=== PATIENT | female | born 1965 | race Hispanic/Latino ===

== ENCOUNTER 2019-10-23 13:09 | Emergency (ER) | payer SELFPAY ==
[2019-10-23] MEDS ORDERED: ONDANSETRON HCL 4 MG/2 ML VIAL ONE (13:41)
[2019-10-23] MEDS ORDERED: KETOROLAC TROMETHAMINE 15MG/ML ONE (13:41)
[2019-10-23] MEDS ORDERED: SODIUM CHLORIDE 0.9% 1000ML 1,000 ML IV ONE (13:41)
[2019-10-23 13:49] LABS: CREATININE 1.1 mg/dL (0.5-1.5); POTASSIUM 4.1 mmol/L (3.5-5.1)
[2019-10-23 13:53] LABS: ALBUMIN 3.6 g/dL (3.5-5.0); BILIRUBIN,DIRECT 0.1 mg/dL (0.0-0.3); BILIRUBIN,TOTAL 0.4 mg/dL (0.2-1.0); TOTAL PROTEIN, SERUM 7.4 g/dL (6.0-8.3)
[2019-10-23 14:05] LABS: BASOPHILS % (AUTO) 0.4 % (0.0-5.0); EOSINOPHILS % (AUTO) 0.4 % (0.0-8.0); HEMATOCRIT 42.5 % (36-48); LYMPHOCYTES % (AUTO) 11.8 % (21.0-51.0); MEAN CORPUSCULAR HEMOGLOBIN 30.4 pg (27.0-33.0); MEAN CORPUSCULAR HGB CONC 33.6 g/dL (32.0-36.0); MEAN CORPUSCULAR VOLUME 90.2 fL (79-99); MONOCYTES % (AUTO) 4.6 % (3.0-13.0); NEUTROPHILS % (AUTO) 82.5 % (40.0-77.0); PLATELET COUNT (AUTO) 319 K/uL (130-400); RED BLOOD CELL COUNT(AUTO) 4.71 MIL/uL (4.00-5.50); RED CELL DISTRIBUTION WIDTH 12.1 % (11.0-15.5); WHITE BLOOD COUNT (AUTO) 16.5 K/uL (4.8-10.8)
[2019-10-23 14:26] LABS: AMPHET/METH SCREEN,URINE NEGATIVE (NEGATIVE); BARBITURATE SCREEN, URINE NEGATIVE (NEGATIVE); BENZODIAZEPINES SCREEN,URINE NEGATIVE (NEGATIVE); CANNABINOID SCREEN,URINE POSITIVE (NEGATIVE); COCAINE SCREEN,URINE POSITIVE (NEGATIVE); OPIATE SCREEN,URINE NEGATIVE (NEGATIVE); PHENCYCLIDINE SCREEN,URINE NEGATIVE (NEGATIVE)
[2019-10-23 14:40] LABS: APPEARANCE,URINE Clear (CLEAR); BILIRUBIN,URINE Negative (NEGATIVE); COLOR,URINE Yellow (YELLOW); GLUCOSE, URINE (UA) Negative (NEGATIVE); KETONES,URINE Negative (NEGATIVE); LEUKOCYTE ESTERASE ,URINE Negative (NEGATIVE); NITRATE,URINE Negative (NEGATIVE); OCCULT BLOOD,URINE Large (NEGATIVE); PH,URINE 7.5 (5.0-8.0); PROTEIN,URINE Negative (NEGATIVE); UROBILINOGEN,URINE 0.2 mg/dL (0.2-1.0)
[2019-10-23 14:52] LABS: BACTERIA,URINE Rare /HPF (None Seen); RBC,URINE 26-50 /HPF (0-1); SQUAMOUS EPITHELIAL CELL,UR Rare /HPF (0-2); WBC,URINE 0-1 /HPF (0-1)
== END 2019-10-23 15:47 | disposition home or self-care (01) ==
LOC: EDH 13:09
DX: N20.0 Calculus of kidney (principal); F14.10 Cocaine abuse, uncomplicated; R11.2 Nausea with vomiting, unspecified; Z72.0 Tobacco use; Z98.890 Other specified postprocedural states
CPT/HCPCS: 36415; 74176; 80048; 80076; 80305; 81001; 82550; 83690; 85025; 93005; 96361; 96374; 96375; 99285; J1885; J2405; J7030

== ENCOUNTER 2019-10-26 11:01 | Emergency (ER) | payer SELFPAY ==
[2019-10-26] MEDS ORDERED: KETOROLAC TROMETHAMINE 15MG/ML ONE (11:45)
[2019-10-26] MEDS ORDERED: ONDANSETRON HCL 4 MG/2 ML VIAL ONE (11:45)
[2019-10-26 12:01] LABS: BASOPHILS % (AUTO) 0.5 % (0.0-5.0); EOSINOPHILS % (AUTO) 2.1 % (0.0-8.0); HEMATOCRIT 38.3 % (36-48); LYMPHOCYTES % (AUTO) 19.7 % (21.0-51.0); MEAN CORPUSCULAR HEMOGLOBIN 29.9 pg (27.0-33.0); MEAN CORPUSCULAR HGB CONC 32.6 g/dL (32.0-36.0); MEAN CORPUSCULAR VOLUME 91.6 fL (79-99); MONOCYTES % (AUTO) 6.5 % (3.0-13.0); NEUTROPHILS % (AUTO) 70.9 % (40.0-77.0); PLATELET COUNT (AUTO) 271 K/uL (130-400); RED BLOOD CELL COUNT(AUTO) 4.18 MIL/uL (4.00-5.50); RED CELL DISTRIBUTION WIDTH 12.1 % (11.0-15.5); WHITE BLOOD COUNT (AUTO) 10.8 K/uL (4.8-10.8)
[2019-10-26 12:02] LABS: APPEARANCE,URINE Clear (CLEAR); BILIRUBIN,URINE Negative (NEGATIVE); COLOR,URINE Yellow (YELLOW); GLUCOSE, URINE (UA) Negative (NEGATIVE); KETONES,URINE Negative (NEGATIVE); LEUKOCYTE ESTERASE ,URINE Negative (NEGATIVE); NITRATE,URINE Negative (NEGATIVE); OCCULT BLOOD,URINE Trace (NEGATIVE); PROTEIN,URINE Negative (NEGATIVE); UROBILINOGEN,URINE 0.2 mg/dL (0.2-1.0)
[2019-10-26 12:06] LABS: CREATININE 0.7 mg/dL (0.5-1.5); POTASSIUM 3.7 mmol/L (3.5-5.1)
[2019-10-26 12:10] LABS: AMPHET/METH SCREEN,URINE NEGATIVE (NEGATIVE); BARBITURATE SCREEN, URINE NEGATIVE (NEGATIVE); BENZODIAZEPINES SCREEN,URINE NEGATIVE (NEGATIVE); CANNABINOID SCREEN,URINE POSITIVE (NEGATIVE); COCAINE SCREEN,URINE POSITIVE (NEGATIVE); OPIATE SCREEN,URINE NEGATIVE (NEGATIVE); PHENCYCLIDINE SCREEN,URINE NEGATIVE (NEGATIVE)
[2019-10-26 12:11] LABS: ALBUMIN 3.7 g/dL (3.5-5.0); BILIRUBIN,TOTAL 0.3 mg/dL (0.2-1.0)
[2019-10-26] MEDS ORDERED: MAG HYDROX/AL HYDROX/SIMETH ES 30 ML SUSP UDCUP ONE (12:20)
[2019-10-26] MEDS ORDERED: LIDOCAINE HCL 2% VISCOUS 15 ML UDCUP ONE (12:20)
[2019-10-26 12:57] LABS: BACTERIA,URINE Rare /HPF (None Seen); RBC,URINE 0-1 /HPF (0-1); SQUAMOUS EPITHELIAL CELL,UR None Seen /HPF (0-2)
== END 2019-10-26 13:06 | disposition home or self-care (01) ==
LOC: EDH 11:01
DX: K29.00 Acute gastritis without bleeding (principal); Z72.0 Tobacco use; Z98.890 Other specified postprocedural states
CPT/HCPCS: 36415; 76705; 80053; 80305; 81001; 83690; 85025; 96374; 96375; 99285; J1885; J2405

== ENCOUNTER 2020-03-02 22:43 | Emergency (ER) | payer OTHER, SELFPAY ==
[2020-03-02 23:05] LABS: BASOPHILS % (AUTO) 0.2 % (0.0-5.0); EOSINOPHILS % (AUTO) 0.1 % (0.0-8.0); HEMATOCRIT 43.1 % (36-48); LYMPHOCYTES % (AUTO) 18.1 % (21.0-51.0); MEAN CORPUSCULAR HEMOGLOBIN 29.4 pg (27.0-33.0); MEAN CORPUSCULAR HGB CONC 33.2 g/dL (32.0-36.0); MEAN CORPUSCULAR VOLUME 88.7 fL (79-99); MONOCYTES % (AUTO) 6.6 % (3.0-13.0); NEUTROPHILS % (AUTO) 74.4 % (40.0-77.0); PLATELET COUNT (AUTO) 304 K/uL (130-400); RED BLOOD CELL COUNT(AUTO) 4.86 MIL/uL (4.00-5.50); RED CELL DISTRIBUTION WIDTH 12.1 % (11.0-15.5); WHITE BLOOD COUNT (AUTO) 13.9 K/uL (4.8-10.8)
[2020-03-02 23:16] LABS: POTASSIUM 3.5 mmol/L (3.5-5.1)
[2020-03-02 23:18] LABS: INR 1.08 (0.85-1.15); PARTIAL THROMBOPLASTIN TIME 28.5 SEC (26.3-35.5); PROTHROMBIN TIME 11.6 SEC (9.6-11.6)
[2020-03-02 23:21] LABS: ALBUMIN 3.8 g/dL (3.5-5.0); BILIRUBIN,TOTAL 0.6 mg/dL (0.2-1.0); TOTAL PROTEIN, SERUM 7.8 g/dL (6.0-8.3)
[2020-03-02] MEDS ORDERED: KETOROLAC TROMETHAMINE 30MG/ML ONE (23:36)
[2020-03-02] MEDS ORDERED: ONDANSETRON HCL 4 MG/2 ML VIAL ONE (23:36)
[2020-03-02] MEDS ORDERED: METOCLOPRAMIDE 10 MG/2 ML VIAL ONE (23:36)
[2020-03-02] MEDS ORDERED: FAMOTIDINE/PF 20 MG/2 ML VIAL IV ONE (23:37)
[2020-03-03 04:23] LABS: APPEARANCE,URINE Clear (CLEAR); BILIRUBIN,URINE Negative (NEGATIVE); COLOR,URINE Yellow (YELLOW); GLUCOSE, URINE (UA) Negative (NEGATIVE); KETONES,URINE Negative (NEGATIVE); LEUKOCYTE ESTERASE ,URINE Trace (NEGATIVE); NITRATE,URINE Negative (NEGATIVE); OCCULT BLOOD,URINE Negative (NEGATIVE); PH,URINE 6.5 (5.0-8.0); PROTEIN,URINE Negative (NEGATIVE)
[2020-03-03 04:25] LABS: BACTERIA,URINE None Seen /HPF (None Seen); RBC,URINE 0-1 /HPF (0-1); SQUAMOUS EPITHELIAL CELL,UR Few /HPF (0-2); WBC,URINE None Seen /HPF (0-1)
[2020-03-03 04:26] LABS: AMPHET/METH SCREEN,URINE NEGATIVE (NEGATIVE); BARBITURATE SCREEN, URINE NEGATIVE (NEGATIVE); BENZODIAZEPINES SCREEN,URINE NEGATIVE (NEGATIVE); CANNABINOID SCREEN,URINE POSITIVE (NEGATIVE); COCAINE SCREEN,URINE POSITIVE (NEGATIVE); OPIATE SCREEN,URINE NEGATIVE (NEGATIVE); PHENCYCLIDINE SCREEN,URINE NEGATIVE (NEGATIVE)
== END 2020-03-03 02:04 | disposition home or self-care (01) ==
LOC: EDH 22:43
DX: K29.70 Gastritis, unspecified, without bleeding (principal); R11.2 Nausea with vomiting, unspecified; Z72.0 Tobacco use; Z98.890 Other specified postprocedural states
CPT/HCPCS: 36415; 76705; 80053; 80305; 81001; 83605; 83690; 84484; 85025; 85610; 85730; 93005; 96361; 96374; 96375; 99285; J1885; J2405; J2765; J3490

== ENCOUNTER 2021-03-06 18:19 | Emergency (ER) | payer OTHER, SELFPAY ==
[~2021-03-06] VITALS: Ht 157.5 cm; Wt 108.9 kg
[2021-03-06 18:49] VITALS: BP 185/81
[2021-03-06] MEDS ORDERED: SODIUM CHLORIDE 0.9% 1000ML 1,000 ML IV SCH (20:30)
[2021-03-06] MEDS ORDERED: FAMOTIDINE/PF 20 MG/2 ML VIAL IV SCH (20:30)
[2021-03-06] MEDS ORDERED: PANTOPRAZOLE 40 MG/VIAL IVP SCH (20:30)
[2021-03-06] MEDS ORDERED: ONDANSETRON HCL 4 MG/2 ML VIAL IVP SCH (20:30)
[2021-03-06] MEDS ORDERED: ONDANSETRON HCL 4 MG/2 ML VIAL ONE (20:40)
[2021-03-06] MEDS ORDERED: PANTOPRAZOLE 40 MG/VIAL ONE (20:40)
[2021-03-06] MEDS ORDERED: FAMOTIDINE/PF 20 MG/2 ML VIAL IV ONE (20:41)
[2021-03-06 20:44] LABS: BASOPHILS % (AUTO) 0.3 % (0.0-5.0); EOSINOPHILS % (AUTO) 0.2 % (0.0-8.0); HEMATOCRIT 46.8 % (36-48); LYMPHOCYTES % (AUTO) 10.6 % (21.0-51.0); MEAN CORPUSCULAR HEMOGLOBIN 30.5 pg (27.0-33.0); MEAN CORPUSCULAR HGB CONC 33.3 g/dL (32.0-36.0); MEAN CORPUSCULAR VOLUME 91.4 fL (79-99); MONOCYTES % (AUTO) 3.2 % (3.0-13.0); NEUTROPHILS % (AUTO) 85.3 % (40.0-77.0); PLATELET COUNT (AUTO) 365 K/uL (130-400); RED BLOOD CELL COUNT(AUTO) 5.12 MIL/uL (4.00-5.50); RED CELL DISTRIBUTION WIDTH 11.9 % (11.0-15.5); WHITE BLOOD COUNT (AUTO) 18.2 K/uL (4.8-10.8)
[2021-03-06 20:47] LABS: APPEARANCE,URINE Clear (CLEAR); BILIRUBIN,URINE Negative (NEGATIVE); COLOR,URINE Yellow (YELLOW); GLUCOSE, URINE (UA) Negative (NEGATIVE); KETONES,URINE 40 mg/dL (NEGATIVE); LEUKOCYTE ESTERASE ,URINE Negative (NEGATIVE); NITRATE,URINE Negative (NEGATIVE); OCCULT BLOOD,URINE Negative (NEGATIVE); PROTEIN,URINE Trace mg/dL (NEGATIVE)
[2021-03-06 20:51] LABS: CARBON DIOXIDE 26 mmol/L (21-32); CHLORIDE 101 mmol/L (101-111); CREATININE 0.8 mg/dL (0.5-1.5); GLOMERULAR FILTR. RATE CALC 79 mL/min (>60); GLUCOSE,RANDOM 145 mg/dL (70-105); POTASSIUM 3.7 mmol/L (3.5-5.1); SODIUM SERUM 139 mmol/L (136-145); UREA NITROGEN, BLOOD 12 mg/dL (7-18)
[2021-03-06 20:55] LABS: BACTERIA,URINE Few /HPF (None Seen); MUCUS,URINE Rare LPF (None Seen); RBC,URINE 0-1 /HPF (0-1); SQUAMOUS EPITHELIAL CELL,UR Few /HPF (0-2); WBC,URINE 0-1 /HPF (0-1)
[2021-03-06 21:01] LABS: ALANINE AMINOTRANSFERASE 34 U/L (12-78); ALBUMIN 4.2 g/dL (3.5-5.0); ASPARTATE AMINOTRANSFERASE 24 U/L (10-37); BILIRUBIN,TOTAL 0.6 mg/dL (0.2-1.0); TOTAL PROTEIN, SERUM 8.7 g/dL (6.0-8.3)
[2021-03-06 21:02] LABS: LIPASE < 50 U/L (114-286)
[2021-03-06 22:44] VITALS: BP 159/60
[2021-03-06] MEDS ORDERED: DICY20TA2 PO (23:21)
[2021-03-06] MEDS ORDERED: ONDA4TAB10 PO (23:21)
[2021-03-06] MEDS ORDERED: PANT40TA PO (23:21)
[2021-03-06] MEDS ORDERED: METO10TA41 PO (23:21)
[2021-03-06 23:27] VITALS: BP 147/71
== END 2021-03-06 23:57 | disposition home or self-care (01) ==
LOC: EDH 18:19
DX: K29.70 Gastritis, unspecified, without bleeding (principal); E86.0 Dehydration; K21.9 Gastro-esophageal reflux disease without esophagitis; Z79.899 Other long term (current) drug therapy; Z87.19 Personal history of other diseases of the digestive system; Z98.890 Other specified postprocedural states
CPT/HCPCS: 36415; 80053; 81001; 83690; 84484; 85025; 93005; 96361; 96374; 96375; 99284; C9113; J2405; J3490; J7030

== ENCOUNTER 2021-08-20 17:17 | Inpatient (IN) | payer OTHER, SELFPAY ==
[~2021-08-20] VITALS: Ht 157.5 cm; Wt 101.7 kg
[~2021-08-20 17:17] MED LIST: DICY20TA2 PO; METO10TA41 PO; ONDA4TAB10 PO; PANT40TA PO
[2021-08-20] MEDS ORDERED: PANTOPRAZOLE 40 MG/VIAL IVP ONE (17:30)
[2021-08-20] MEDS ORDERED: 0.9%NACL 1000ML 1,000 ML IV ONE ×2 (17:30→20:30)
[2021-08-20] MEDS ORDERED: ONDANSETRON 4MG INJ IVP ONE (17:30)
[2021-08-20 17:48] LABS: BASOPHILS % (AUTO) 0.3 % (0.0-5.0); EOSINOPHILS % (AUTO) 0.1 % (0.0-8.0); HEMATOCRIT 49.5 % (36-48); LYMPHOCYTES % (AUTO) 13.2 % (21.0-51.0); MEAN CORPUSCULAR HEMOGLOBIN 30.7 pg (27.0-33.0); MEAN CORPUSCULAR HGB CONC 34.1 g/dL (32.0-36.0); MONOCYTES % (AUTO) 4.7 % (3.0-13.0); NEUTROPHILS % (AUTO) 81.2 % (40.0-77.0); PLATELET COUNT (AUTO) 427 K/uL (130-400); WHITE BLOOD COUNT (AUTO) 18.3 K/uL (4.8-10.8)
[2021-08-20 17:57] LABS: CARBON DIOXIDE 27 mmol/L (21-32); CHLORIDE 96 mmol/L (101-111); GLOMERULAR FILTR. RATE CALC 61 mL/min (>60); GLUCOSE,RANDOM 164 mg/dL (70-105); POTASSIUM 3.4 mmol/L (3.5-5.1); SODIUM SERUM 137 mmol/L (136-145); UREA NITROGEN, BLOOD 10 mg/dL (7-18)
[2021-08-20 17:59] LABS: ALANINE AMINOTRANSFERASE 37 U/L (12-78); ALBUMIN 4.4 g/dL (3.5-5.0); AMYLASE 38 U/L (25-115); ASPARTATE AMINOTRANSFERASE 24 U/L (10-37); BILIRUBIN,TOTAL 0.8 mg/dL (0.2-1.0); TOTAL PROTEIN, SERUM 9.1 g/dL (6.0-8.3)
[2021-08-20 18:01] LABS: LIPASE < 50 U/L (114-286)
[2021-08-20 18:17] LABS: INR 1.15 (0.85-1.15); PROTHROMBIN TIME 12.4 SEC (9.6-11.6)
[2021-08-20 18:18] LABS: PARTIAL THROMBOPLASTIN TIME 28.7 SEC (26.3-35.5)
[2021-08-20] MEDS ORDERED: IOHEXOL 350 MG/ML 100ML INFUS..BTL IV ONE (19:10)
[2021-08-20 20:10] LABS: APPEARANCE,URINE Clear (CLEAR); BILIRUBIN,URINE Negative (NEGATIVE); COLOR,URINE Yellow (YELLOW); GLUCOSE, URINE (UA) Negative (NEGATIVE); KETONES,URINE Trace mg/dL (NEGATIVE); LEUKOCYTE ESTERASE ,URINE Negative (NEGATIVE); NITRATE,URINE Negative (NEGATIVE); OCCULT BLOOD,URINE Negative (NEGATIVE); PH,URINE 5.5 (5.0-8.0); PROTEIN,URINE POS 1+ mg/dL (NEGATIVE)
[2021-08-20 20:17] LABS: BACTERIA,URINE Few /HPF (None Seen); RBC,URINE 0-1 /HPF (0-1); SQUAMOUS EPITHELIAL CELL,UR Moderate /HPF (0-2); WBC,URINE 0-1 /HPF (0-1)
[2021-08-20 20:18] LABS: AMPHET/METH SCREEN,URINE NEGATIVE (NEGATIVE); BARBITURATE SCREEN, URINE NEGATIVE (NEGATIVE); BENZODIAZEPINES SCREEN,URINE NEGATIVE (NEGATIVE); CANNABINOID SCREEN,URINE POSITIVE (NEGATIVE); COCAINE SCREEN,URINE POSITIVE (NEGATIVE); OPIATE SCREEN,URINE NEGATIVE (NEGATIVE); PHENCYCLIDINE SCREEN,URINE NEGATIVE (NEGATIVE)
[2021-08-20] MEDS ORDERED: ZOSYN 3.375GM +NS 50ML IV SCH (20:30)
[2021-08-20] MEDS ORDERED: MORPHINE 4 MG SYG IM ONE (20:30)
[2021-08-20] MEDS ORDERED: MORPHINE 4 MG SYG ONE (20:53)
[2021-08-20] MEDS: LACTATED RINGERS 1000ML 1,000 ML IV SCH (21:30)
[2021-08-20] MEDS ORDERED: MORPHINE 4 MG SYG IV ONE (22:00)
[2021-08-21] MEDS: THIAMINE HCL 100 MG, FOLIC ACID 1 MG, M.V.I. IV [ADULT] 10 ML in 0.9%NACL 1000ML 1,000 ML IV SCH ×2 (03:30→07:50)
[2021-08-21] MEDS ORDERED: PHARMACY COMMUNICATION MISC PRN (03:30)
[2021-08-21] MEDS ORDERED: LORAZEPAM 2 MG/ML 1 ML VIAL IVP PRN (03:30)
[2021-08-21] MEDS ORDERED: CHLORDIAZEPOXIDE HCL 25 MG CAP PO PRN (03:30)
[2021-08-21] MEDS ORDERED: ZOSYN 3.375GM +NS 50ML IV SCH (05:30)
[2021-08-21] MEDS: ZOSYN 3.375GM +NS 50ML IV SCH ×3 (05:34→20:35)
[2021-08-21] MEDS: HYDRALAZINE 20MG/ML VIAL IV PRN ×2 (06:26→10:18)
[2021-08-21 06:40] LABS: BASOPHILS % (AUTO) 0.4 % (0.0-5.0); EOSINOPHILS % (AUTO) 0.7 % (0.0-8.0); HEMATOCRIT 43.6 % (36-48); LYMPHOCYTES % (AUTO) 20.6 % (21.0-51.0); MEAN CORPUSCULAR HEMOGLOBIN 31.1 pg (27.0-33.0); MEAN CORPUSCULAR HGB CONC 33.3 g/dL (32.0-36.0); MEAN CORPUSCULAR VOLUME 93.6 fL (79-99); MONOCYTES % (AUTO) 7.4 % (3.0-13.0); NEUTROPHILS % (AUTO) 70.5 % (40.0-77.0); PLATELET COUNT (AUTO) 318 K/uL (130-400); RED BLOOD CELL COUNT(AUTO) 4.66 MIL/uL (4.00-5.50); RED CELL DISTRIBUTION WIDTH 12.2 % (11.0-15.5); WHITE BLOOD COUNT (AUTO) 13.6 K/uL (4.8-10.8)
[2021-08-21] MEDS: LACTATED RINGERS 1000ML 1,000 ML IV SCH ×2 (06:46→17:51)
[2021-08-21 07:09] LABS: PHOSPHORUS 4.3 mg/dL (2.5-4.9)
[2021-08-21 07:19] LABS: ALCOHOL, BLOOD < 3 mg/dL (0-10)
[2021-08-21 07:20] LABS: CREATININE 0.9 mg/dL (0.5-1.5); POTASSIUM 3.3 mmol/L (3.5-5.1)
[2021-08-21 07:24] LABS: ALBUMIN 3.5 g/dL (3.5-5.0); BILIRUBIN,TOTAL 0.8 mg/dL (0.2-1.0); TOTAL PROTEIN, SERUM 7.1 g/dL (6.0-8.3)
[2021-08-21] MEDS ORDERED: KETOROLAC 30MG VIAL (30MG/ML) ONE (10:10)
[2021-08-21] MEDS: PANTOPRAZOLE 40 MG/VIAL IVP SCH ×2 (10:17→20:33)
[2021-08-21] MEDS: ENOXAPARIN SODIUM 40 MG/0.4 ML SYRINGE SQ SCH ×2 (10:18→10:27)
[2021-08-21] MEDS ORDERED: HYDRALAZINE 20MG/ML VIAL IV PRN (10:30)
[2021-08-21 11:37] VITALS: BP 170/92
[2021-08-21 16:48] VITALS: BP 156/89
[2021-08-21 20:25] VITALS: BP 187/92
[2021-08-21] MEDS: KETOROLAC 15MG/ML VIAL (15MG/ML) IV PRN (20:38)
[2021-08-21] MEDS ORDERED: IOHEXOL-350 75 ML VIAL IV ONE (20:46)
[2021-08-21] MEDS ORDERED: DIATR MEGLU/DIATRIZOATE SODIUM 30 ML BOTTLE ONE (21:28)
[2021-08-21] MEDS: ONDANSETRON 4MG INJ IV PRN (23:32)
[2021-08-22] VITALS (8 sets, daily range): BP systolic 142–191; BP diastolic 62–105
[2021-08-22] MEDS: KETOROLAC 15MG/ML VIAL (15MG/ML) IV PRN ×3 (01:49→23:00)
[2021-08-22] MEDS: LACTATED RINGERS 1000ML 1,000 ML IV SCH ×3 (03:00→22:01)
[2021-08-22] MEDS: ZOSYN 3.375GM +NS 50ML IV SCH ×3 (05:19→20:13)
[2021-08-22 08:17] LABS: BASOPHILS % (AUTO) 0.3 % (0.0-5.0); EOSINOPHILS % (AUTO) 0.6 % (0.0-8.0); LYMPHOCYTES % (AUTO) 18.3 % (21.0-51.0); MEAN CORPUSCULAR HEMOGLOBIN 30.8 pg (27.0-33.0); MEAN CORPUSCULAR HGB CONC 33.6 g/dL (32.0-36.0); MEAN CORPUSCULAR VOLUME 91.7 fL (79-99); NEUTROPHILS % (AUTO) 73.5 % (40.0-77.0); PLATELET COUNT (AUTO) 309 K/uL (130-400); RED BLOOD CELL COUNT(AUTO) 4.58 MIL/uL (4.00-5.50); RED CELL DISTRIBUTION WIDTH 12.1 % (11.0-15.5); WHITE BLOOD COUNT (AUTO) 14.5 K/uL (4.8-10.8)
[2021-08-22] MEDS ORDERED: MORPHINE 2 MG SYG IVP SCH (08:30)
[2021-08-22 08:36] LABS: CREATININE 0.8 mg/dL (0.5-1.5); POTASSIUM 3.2 mmol/L (3.5-5.1)
[2021-08-22] MEDS: PANTOPRAZOLE 40 MG/VIAL IVP SCH ×2 (09:55→20:13)
[2021-08-22] MEDS ORDERED: LIDOCAINE HCL-MPF 1% 2ML VIAL IV SCH (15:30)
[2021-08-22] MEDS: POTASSIUM CHLORIDE 20MEQ/100ML 100 ML IV PRN ×2 (15:50→20:13)
[2021-08-22] MEDS: HYDRALAZINE 20MG/ML VIAL IV PRN ×2 (16:40)
[2021-08-23] MEDS: THIAMINE HCL 100 MG, FOLIC ACID 1 MG, M.V.I. IV [ADULT] 10 ML in 0.9%NACL 1000ML 1,000 ML IV SCH (03:24)
[2021-08-23] MEDS: ZOSYN 3.375GM +NS 50ML IV SCH ×3 (03:25→20:08)
[2021-08-23 04:00] VITALS: BP 150/80
[2021-08-23 05:33] LABS: BASOPHILS % (AUTO) 0.6 % (0.0-5.0); EOSINOPHILS % (AUTO) 1.6 % (0.0-8.0); HEMATOCRIT 41.4 % (36-48); LYMPHOCYTES % (AUTO) 20.4 % (21.0-51.0); MEAN CORPUSCULAR HEMOGLOBIN 30.8 pg (27.0-33.0); MEAN CORPUSCULAR HGB CONC 32.6 g/dL (32.0-36.0); MEAN CORPUSCULAR VOLUME 94.5 fL (79-99); MONOCYTES % (AUTO) 7.6 % (3.0-13.0); NEUTROPHILS % (AUTO) 69.5 % (40.0-77.0); PLATELET COUNT (AUTO) 274 K/uL (130-400); RED BLOOD CELL COUNT(AUTO) 4.38 MIL/uL (4.00-5.50); RED CELL DISTRIBUTION WIDTH 12.1 % (11.0-15.5); WHITE BLOOD COUNT (AUTO) 12.2 K/uL (4.8-10.8)
[2021-08-23 05:41] LABS: CREATININE 0.8 mg/dL (0.5-1.5); POTASSIUM 3.2 mmol/L (3.5-5.1)
[2021-08-23] MEDS: LIDOCAINE HCL-MPF 1% 2ML VIAL IV PRN ×2 (05:54→14:28)
[2021-08-23] MEDS: POTASSIUM CHLORIDE 20MEQ/100ML 100 ML IV PRN ×2 (05:54→14:28)
[2021-08-23 07:53] VITALS: BP 148/78
[2021-08-23] MEDS: PANTOPRAZOLE 40 MG/VIAL IVP SCH ×2 (09:03→20:08)
[2021-08-23] MEDS: ENOXAPARIN SODIUM 40 MG/0.4 ML SYRINGE SQ SCH (09:03)
[2021-08-23] MEDS: LACTATED RINGERS 1000ML 1,000 ML IV SCH ×2 (09:05→16:12)
[2021-08-23 12:00] VITALS: BP 172/82
[2021-08-23 16:00] VITALS: BP 162/71
[2021-08-23] MEDS: HYDRALAZINE 20MG/ML VIAL IV PRN (16:11)
[2021-08-23] MEDS: KETOROLAC 15MG/ML VIAL (15MG/ML) IV PRN (16:17)
[2021-08-23 19:54] VITALS: BP 156/70
[2021-08-23 23:08] VITALS: BP 160/69
[2021-08-24 03:45] VITALS: BP 164/89
[2021-08-24] MEDS: ZOSYN 3.375GM +NS 50ML IV SCH ×3 (04:42→20:53)
[2021-08-24] MEDS: KETOROLAC 15MG/ML VIAL (15MG/ML) IV PRN (04:42)
[2021-08-24] MEDS: ONDANSETRON 4MG INJ IV PRN (04:42)
[2021-08-24] MEDS: LACTATED RINGERS 1000ML 1,000 ML IV SCH ×2 (04:43→15:33)
[2021-08-24 05:11] LABS: BASOPHILS % (AUTO) 0.5 % (0.0-5.0); EOSINOPHILS % (AUTO) 1.7 % (0.0-8.0); HEMATOCRIT 40.8 % (36-48); MEAN CORPUSCULAR HGB CONC 33.3 g/dL (32.0-36.0); MEAN CORPUSCULAR VOLUME 92.9 fL (79-99); MONOCYTES % (AUTO) 6.7 % (3.0-13.0); NEUTROPHILS % (AUTO) 65.7 % (40.0-77.0); PLATELET COUNT (AUTO) 309 K/uL (130-400); RED BLOOD CELL COUNT(AUTO) 4.39 MIL/uL (4.00-5.50); RED CELL DISTRIBUTION WIDTH 11.8 % (11.0-15.5); WHITE BLOOD COUNT (AUTO) 12.1 K/uL (4.8-10.8)
[2021-08-24 05:24] LABS: ALBUMIN 3.2 g/dL (3.5-5.0); BILIRUBIN,TOTAL 0.7 mg/dL (0.2-1.0); CREATININE 0.7 mg/dL (0.5-1.5); MAGNESIUM 2.1 mg/dL (1.80-2.40); PHOSPHORUS 4.2 mg/dL (2.5-4.9); POTASSIUM 3.4 mmol/L (3.5-5.1); TOTAL PROTEIN, SERUM 6.6 g/dL (6.0-8.3)
[2021-08-24] MEDS: POTASSIUM CHLORIDE 20MEQ/100ML 100 ML IV PRN (06:56)
[2021-08-24] MEDS: LIDOCAINE HCL-MPF 1% 2ML VIAL IV PRN (06:56)
[2021-08-24 08:00] VITALS: BP 165/72
[2021-08-24] MEDS: PANTOPRAZOLE 40 MG/VIAL IVP SCH ×2 (10:07→20:30)
[2021-08-24] MEDS: ENOXAPARIN SODIUM 40 MG/0.4 ML SYRINGE SQ SCH (10:08)
[2021-08-24 12:00] VITALS: BP 149/64
[2021-08-24 16:00] VITALS: BP 180/71
[2021-08-24 20:00] VITALS: BP 166/77
[2021-08-25 00:03] VITALS: BP 183/90
[2021-08-25] MEDS: ONDANSETRON 4MG INJ IV PRN (00:03)
[2021-08-25] MEDS: HYDRALAZINE 20MG/ML VIAL IV PRN ×2 (00:04→21:23)
[2021-08-25] MEDS: KETOROLAC 15MG/ML VIAL (15MG/ML) IV PRN ×3 (00:04→21:23)
[2021-08-25] MEDS: LACTATED RINGERS 1000ML 1,000 ML IV SCH ×3 (00:51→21:23)
[2021-08-25 05:05] VITALS: BP 168/76
[2021-08-25] MEDS: ZOSYN 3.375GM +NS 50ML IV SCH ×3 (05:49→21:23)
[2021-08-25 08:53] VITALS: BP 174/83
[2021-08-25] MEDS: ENOXAPARIN SODIUM 40 MG/0.4 ML SYRINGE SQ SCH (09:00)
[2021-08-25] MEDS: PANTOPRAZOLE 40 MG/VIAL IVP SCH ×2 (09:03→20:31)
[2021-08-25 09:35] LABS: INR 1.16 (0.85-1.15); PROTHROMBIN TIME 12.5 SEC (9.6-11.6)
[2021-08-25 09:36] LABS: PARTIAL THROMBOPLASTIN TIME 28.3 SEC (26.3-35.5)
[2021-08-25 11:48] VITALS: BP 187/81
[2021-08-25 17:18] VITALS: BP 185/73
[2021-08-25 19:52] VITALS: BP 187/86
[2021-08-26] VITALS (7 sets, daily range): BP systolic 128–181; BP diastolic 53–90
[2021-08-26] MEDS: ZOSYN 3.375GM +NS 50ML IV SCH ×3 (05:47→20:41)
[2021-08-26 06:22] LABS: BASOPHILS % (AUTO) 0.4 % (0.0-5.0); EOSINOPHILS % (AUTO) 2.5 % (0.0-8.0); HEMATOCRIT 40.3 % (36-48); LYMPHOCYTES % (AUTO) 26.3 % (21.0-51.0); MEAN CORPUSCULAR HEMOGLOBIN 30.7 pg (27.0-33.0); MEAN CORPUSCULAR VOLUME 93.1 fL (79-99); MONOCYTES % (AUTO) 7.3 % (3.0-13.0); NEUTROPHILS % (AUTO) 63.2 % (40.0-77.0); PLATELET COUNT (AUTO) 326 K/uL (130-400); RED BLOOD CELL COUNT(AUTO) 4.33 MIL/uL (4.00-5.50); RED CELL DISTRIBUTION WIDTH 11.9 % (11.0-15.5); WHITE BLOOD COUNT (AUTO) 11.2 K/uL (4.8-10.8)
[2021-08-26 06:38] LABS: CREATININE 0.6 mg/dL (0.5-1.5); POTASSIUM 3.2 mmol/L (3.5-5.1)
[2021-08-26] MEDS: LACTATED RINGERS 1000ML 1,000 ML IV SCH ×2 (07:00→17:00)
[2021-08-26] MEDS: HYDRALAZINE 20MG/ML VIAL IV PRN ×2 (07:24→20:25)
[2021-08-26] MEDS: ENOXAPARIN SODIUM 40 MG/0.4 ML SYRINGE SQ SCH (09:28)
[2021-08-26] MEDS: PANTOPRAZOLE 40 MG/VIAL IVP SCH ×2 (09:28→20:25)
[2021-08-26] MEDS: MORPHINE 2 MG SYG IVP PRN (12:05)
[2021-08-26] MEDS ORDERED: M.V.I. IV [ADULT] 10 ML in CLINIMIX-E 5%AA /D15%W 2000ML 2,000 ML IV SCH (13:00)
[2021-08-26] MEDS: FAT EMULSIONS 20% 250ML 250 ML IV SCH (13:00)
[2021-08-26] MEDS: POTASSIUM CHLORIDE 20MEQ/100ML 100 ML IV PRN ×2 (20:30→23:02)
[2021-08-27] VITALS (7 sets, daily range): BP systolic 132–175; BP diastolic 67–88
[2021-08-27] MEDS: HYDRALAZINE 20MG/ML VIAL IV PRN ×2 (03:37→20:30)
[2021-08-27] MEDS: ZOSYN 3.375GM +NS 50ML IV SCH ×3 (04:29→20:27)
[2021-08-27 05:19] LABS: ALBUMIN 3.2 g/dL (3.5-5.0); BILIRUBIN,TOTAL 0.4 mg/dL (0.2-1.0); CREATININE 0.6 mg/dL (0.5-1.5); MAGNESIUM 1.8 mg/dL (1.80-2.40); PHOSPHORUS 3.8 mg/dL (2.5-4.9); POTASSIUM 3.1 mmol/L (3.5-5.1); TOTAL PROTEIN, SERUM 6.6 g/dL (6.0-8.3)
[2021-08-27] MEDS: POTASSIUM CHLORIDE 20MEQ/100ML 100 ML IV PRN ×3 (05:32→21:23)
[2021-08-27] MEDS: PANTOPRAZOLE 40 MG/VIAL IVP SCH ×2 (09:09→20:26)
[2021-08-27] MEDS: ENOXAPARIN SODIUM 40 MG/0.4 ML SYRINGE SQ SCH (09:09)
[2021-08-27] MEDS ORDERED: DIATR MEGLU/DIATRIZOATE SODIUM 30 ML BOTTLE ONE (10:55)
[2021-08-27] MEDS ORDERED: IOHEXOL-350 75 ML VIAL IV ONE (14:17)
[2021-08-27] MEDS ORDERED: MAGNESIUM 2GM PREMIX 50ML 50 ML IV PRN (16:00)
[2021-08-27] MEDS ORDERED: CLINIMIX-E 5%AA /D15%W 2000ML 2,000 ML IV SCH (16:30)
[2021-08-27] MEDS: MORPHINE 2 MG SYG IVP PRN (18:42)
[2021-08-28 03:09] VITALS: BP 141/71
[2021-08-28] MEDS: ZOSYN 3.375GM +NS 50ML IV SCH ×3 (03:51→20:34)
[2021-08-28] MEDS: MORPHINE 2 MG SYG IVP PRN ×2 (04:00→12:09)
[2021-08-28 04:27] LABS: MAGNESIUM 2.4 mg/dL (1.80-2.40); POTASSIUM 3.6 mmol/L (3.5-5.1)
[2021-08-28] MEDS: POTASSIUM CHLORIDE 20MEQ/100ML 100 ML IV PRN (04:35)
[2021-08-28 07:05] VITALS: BP 123/59
[2021-08-28 08:19] LABS: BASOPHILS % (AUTO) 0.4 % (0.0-5.0); EOSINOPHILS % (AUTO) 3.1 % (0.0-8.0); HEMATOCRIT 37.9 % (36-48); LYMPHOCYTES % (AUTO) 24.6 % (21.0-51.0); MEAN CORPUSCULAR HEMOGLOBIN 30.6 pg (27.0-33.0); MEAN CORPUSCULAR VOLUME 92.9 fL (79-99); MONOCYTES % (AUTO) 9.6 % (3.0-13.0); NEUTROPHILS % (AUTO) 62.1 % (40.0-77.0); PLATELET COUNT (AUTO) 309 K/uL (130-400); RED BLOOD CELL COUNT(AUTO) 4.08 MIL/uL (4.00-5.50); RED CELL DISTRIBUTION WIDTH 11.9 % (11.0-15.5); WHITE BLOOD COUNT (AUTO) 8.9 K/uL (4.8-10.8)
[2021-08-28 08:27] LABS: CREATININE 0.7 mg/dL (0.5-1.5); MAGNESIUM 2.3 mg/dL (1.80-2.40)
[2021-08-28] MEDS: ENOXAPARIN SODIUM 40 MG/0.4 ML SYRINGE SQ SCH (09:58)
[2021-08-28] MEDS: PANTOPRAZOLE 40 MG/VIAL IVP SCH ×2 (09:59→20:34)
[2021-08-28 11:06] VITALS: BP 139/80
[2021-08-28] MEDS ORDERED: CLINIMIX-E 5%AA /D15%W 2000ML 2,000 ML IV SCH (13:00)
[2021-08-28 15:05] VITALS: BP 144/81
[2021-08-28 19:53] VITALS: BP 154/85
[2021-08-28 23:26] VITALS: BP 145/67
[2021-08-29] VITALS (14 sets, daily range): BP systolic 126–159; BP diastolic 65–85
[2021-08-29] MEDS: PANTOPRAZOLE 40 MG/VIAL IVP SCH ×2 (00:06→07:47)
[2021-08-29] MEDS: ZOSYN 3.375GM +NS 50ML IV SCH ×4 (04:40→21:30)
[2021-08-29 06:59] LABS: BASOPHILS % (AUTO) 0.4 % (0.0-5.0); EOSINOPHILS % (AUTO) 1.9 % (0.0-8.0); HEMATOCRIT 39.7 % (36-48); LYMPHOCYTES % (AUTO) 17.3 % (21.0-51.0); MEAN CORPUSCULAR HEMOGLOBIN 30.7 pg (27.0-33.0); MEAN CORPUSCULAR HGB CONC 32.5 g/dL (32.0-36.0); MEAN CORPUSCULAR VOLUME 94.5 fL (79-99); MONOCYTES % (AUTO) 8.6 % (3.0-13.0); NEUTROPHILS % (AUTO) 71.3 % (40.0-77.0); PLATELET COUNT (AUTO) 336 K/uL (130-400); RED CELL DISTRIBUTION WIDTH 11.9 % (11.0-15.5)
[2021-08-29 07:17] LABS: CREATININE 0.6 mg/dL (0.5-1.5); POTASSIUM 3.9 mmol/L (3.5-5.1)
[2021-08-29] MEDS: MORPHINE 2 MG SYG IVP SCH (07:48)
[2021-08-29] MEDS: ENOXAPARIN SODIUM 40 MG/0.4 ML SYRINGE SQ SCH (07:48)
[2021-08-29] MEDS: FAT EMULSIONS 20% 250ML 250 ML IV SCH (10:16)
[2021-08-29] MEDS ORDERED: CLINIMIX-E 5%AA /D15%W 2000ML 2,000 ML IV SCH (14:30)
[2021-08-29] MEDS ORDERED: FENTANYL CITRATE PF 50 MCG/1 ML 2ML VIAL ONE (19:20)
[2021-08-29] MEDS ORDERED: SUCCINYLCHOLINE CHLORIDE 20 MG/ML 10 ML VIAL ONE (19:20)
[2021-08-29] MEDS ORDERED: PROPOFOL 10 MG/ML 20ML VIAL IV ONE ×2 (19:20→21:31)
[2021-08-29] MEDS ORDERED: MIDAZOLAM HCL 1 MG/ML 2ML VIAL ONE (19:20)
[2021-08-29] MEDS ORDERED: ROCURONIUM 10MG/1ML SYR 10 MG/ML ML ONE ×2 (19:20→19:21)
[2021-08-29] MEDS ORDERED: LIDOCAINE PF 100MG/5ML (2%) SYRINGE 5ML ONE (19:20)
[2021-08-29] MEDS ORDERED: PHENYLEPHRINE HCL 10 MG/ML 1ML VIAL IV ONE (21:08)
[2021-08-29] MEDS ORDERED: NEOSTIGMINE 5MG/5ML SYR IV ONE (22:50)
[2021-08-29] MEDS ORDERED: GLYCOPYRROLATE 1 MG/5 ML SYRINGE ONE (22:50)
[2021-08-29] MEDS ORDERED: MEPERIDINE-PF 25 MG/ML SYG ONE ×2 (23:15→23:29)
[2021-08-29] MEDS ORDERED: METOCLOPRAMIDE 10 MG/2 ML VIAL ONE (23:42)
[2021-08-30] VITALS (14 sets, daily range): BP systolic 100–142; BP diastolic 56–76
[2021-08-30] MEDS: MORPHINE 2 MG SYG IVP PRN ×2 (00:27→06:38)
[2021-08-30] MEDS ORDERED: KETOROLAC 30MG VIAL (30MG/ML) ONE (03:22)
[2021-08-30] MEDS ORDERED: KETOROLAC 30MG VIAL (30MG/ML) IV ONE (03:30)
[2021-08-30] MEDS: ZOSYN 3.375GM +NS 50ML IV SCH ×3 (04:56→19:57)
[2021-08-30] MEDS: MORPHINE 2 MG SYG IVP SCH (06:06)
[2021-08-30] MEDS ORDERED: MORPHINE PCA 50MG/50ML NS IV SCH (07:00)
[2021-08-30 08:20] LABS: HEMATOCRIT 35.5 % (36-48); MEAN CORPUSCULAR HEMOGLOBIN 30.9 pg (27.0-33.0); MEAN CORPUSCULAR HGB CONC 32.7 g/dL (32.0-36.0); MEAN CORPUSCULAR VOLUME 94.4 fL (79-99); RED BLOOD CELL COUNT(AUTO) 3.76 MIL/uL (4.00-5.50); RED CELL DISTRIBUTION WIDTH 11.9 % (11.0-15.5); WHITE BLOOD COUNT (AUTO) 13.2 K/uL (4.8-10.8)
[2021-08-30 08:29] LABS: CREATININE 0.8 mg/dL (0.5-1.5)
[2021-08-30] MEDS: ENOXAPARIN SODIUM 40 MG/0.4 ML SYRINGE SQ SCH (08:51)
[2021-08-30] MEDS: PANTOPRAZOLE 40 MG/VIAL IVP SCH ×2 (08:51→19:56)
[2021-08-30] MEDS ORDERED: KETOROLAC 15MG/ML VIAL (15MG/ML) IM PRN (13:30)
[2021-08-30] MEDS: KETOROLAC 15MG/ML VIAL (15MG/ML) IV PRN ×2 (13:49→19:56)
[2021-08-31] VITALS (7 sets, daily range): BP systolic 111–137; BP diastolic 59–77
[2021-08-31] MEDS ORDERED: DEXTROSE 5%-WATER 1,000 ML IV ONE (02:19)
[2021-08-31] MEDS: KETOROLAC 15MG/ML VIAL (15MG/ML) IV PRN ×2 (02:21→20:41)
[2021-08-31] MEDS: ZOSYN 3.375GM +NS 50ML IV SCH ×3 (04:47→20:41)
[2021-08-31 05:03] LABS: HEMATOCRIT 32.9 % (36-48); MEAN CORPUSCULAR HEMOGLOBIN 30.7 pg (27.0-33.0); MEAN CORPUSCULAR HGB CONC 32.2 g/dL (32.0-36.0); MEAN CORPUSCULAR VOLUME 95.4 fL (79-99); RED BLOOD CELL COUNT(AUTO) 3.45 MIL/uL (4.00-5.50); RED CELL DISTRIBUTION WIDTH 11.8 % (11.0-15.5); WHITE BLOOD COUNT (AUTO) 11.4 K/uL (4.8-10.8)
[2021-08-31 05:19] LABS: CREATININE 0.7 mg/dL (0.5-1.5); POTASSIUM 3.3 mmol/L (3.5-5.1)
[2021-08-31] MEDS: POTASSIUM CHLORIDE 20MEQ/100ML 100 ML IV PRN (07:32)
[2021-08-31] MEDS ORDERED: COMPOUND IV MISC 1 EACH IVSOLN MISC PRN (08:30)
[2021-08-31] MEDS ORDERED: [UNRECOGNIZED DRUG - NUTRITION] IV NR (09:00)
[2021-08-31] MEDS ORDERED: COMPOUND IV REFRIGERATED 1 EACH MISC ONE (09:04)
[2021-08-31] MEDS: PANTOPRAZOLE 40 MG/VIAL IVP SCH ×2 (09:06→20:41)
[2021-08-31] MEDS: ENOXAPARIN SODIUM 40 MG/0.4 ML SYRINGE SQ SCH (09:07)
[2021-08-31] MEDS: FAT EMULSIONS 20% 250ML 250 ML IV SCH (09:08)
[2021-09-01 03:42] VITALS: BP 117/61
[2021-09-01] MEDS: ZOSYN 3.375GM +NS 50ML IV SCH ×3 (06:37→20:40)
[2021-09-01 06:43] LABS: MEAN CORPUSCULAR HEMOGLOBIN 30.2 pg (27.0-33.0); MEAN CORPUSCULAR HGB CONC 31.6 g/dL (32.0-36.0); MEAN CORPUSCULAR VOLUME 95.4 fL (79-99); RED BLOOD CELL COUNT(AUTO) 3.25 MIL/uL (4.00-5.50); RED CELL DISTRIBUTION WIDTH 11.7 % (11.0-15.5); WHITE BLOOD COUNT (AUTO) 8.5 K/uL (4.8-10.8)
[2021-09-01 06:52] LABS: CREATININE 0.7 mg/dL (0.5-1.5); POTASSIUM 3.4 mmol/L (3.5-5.1)
[2021-09-01 07:05] VITALS: BP 145/81
[2021-09-01] MEDS: PANTOPRAZOLE 40 MG/VIAL IVP SCH ×2 (10:19→20:39)
[2021-09-01] MEDS: ENOXAPARIN SODIUM 40 MG/0.4 ML SYRINGE SQ SCH (10:22)
[2021-09-01 11:05] VITALS: BP 134/80
[2021-09-01] MEDS ORDERED: COMPOUND IV REFRIGERATED 1 EACH IVSOLN MISC PRN (12:00)
[2021-09-01] MEDS: POTASSIUM CHLORIDE 20MEQ/100ML 100 ML IV PRN (12:07)
[2021-09-01] MEDS: KETOROLAC 15MG/ML VIAL (15MG/ML) IV PRN ×2 (13:56→20:40)
[2021-09-01 15:00] VITALS: BP 123/68
[2021-09-01 19:55] VITALS: BP 125/74
[2021-09-01 23:30] VITALS: BP 119/64
[2021-09-02 04:24] VITALS: BP 120/58
[2021-09-02] MEDS: ZOSYN 3.375GM +NS 50ML IV SCH ×2 (06:03→14:14)
[2021-09-02 06:20] LABS: HEMATOCRIT 29.4 % (36-48); MEAN CORPUSCULAR HEMOGLOBIN 30.5 pg (27.0-33.0); MEAN CORPUSCULAR HGB CONC 31.6 g/dL (32.0-36.0); MEAN CORPUSCULAR VOLUME 96.4 fL (79-99); RED BLOOD CELL COUNT(AUTO) 3.05 MIL/uL (4.00-5.50); RED CELL DISTRIBUTION WIDTH 11.8 % (11.0-15.5); WHITE BLOOD COUNT (AUTO) 8.4 K/uL (4.8-10.8)
[2021-09-02 06:24] LABS: CREATININE 0.6 mg/dL (0.5-1.5); POTASSIUM 3.2 mmol/L (3.5-5.1)
[2021-09-02 08:00] VITALS: BP 120/68
[2021-09-02] MEDS ORDERED: M.V.I. IV [ADULT] 10 ML in CLINIMIX-E 5%AA /D15%W 2000ML 2,000 ML IV NR (09:00)
[2021-09-02] MEDS ORDERED: KCL 20 MEQ ERTAB PO SCH (09:30)
[2021-09-02] MEDS ORDERED: IBUP-2070 PO (09:40)
[2021-09-02] MEDS: PANTOPRAZOLE 40 MG/VIAL IVP SCH (09:44)
[2021-09-02] MEDS: ENOXAPARIN SODIUM 40 MG/0.4 ML SYRINGE SQ SCH (09:44)
[2021-09-02 11:36] VITALS: BP 136/75
[2021-09-02 16:00] VITALS: BP 130/71
== END 2021-09-02 17:30 | disposition home or self-care (01) | DRG 854 ==
LOC: EDH 17:17 → EDHIP 17:18 → 3AH 08-21 07:59
PROVIDERS: ADMIT Hospitalist; ATTEND Hospitalist
PROC: 0D9670Z Drainage of Stomach with Drainage Device, Via Natural or Artificial Opening (ICD-10-PCS; 2021-08-26)
PROC: 0DJD0ZZ Inspection of Lower Intestinal Tract, Open Approach (ICD-10-PCS; principal; 2021-08-29 17:00)
PROC: 0DB80ZZ Excision of Small Intestine, Open Approach (ICD-10-PCS; 2021-08-29 17:00)
PROC: 0WQF0ZZ Repair Abdominal Wall, Open Approach (ICD-10-PCS; 2021-08-29 17:00)
DX: A41.9 Sepsis, unspecified organism (principal); K43.6 Other and unspecified ventral hernia with obstruction, without gangrene; F19.20 Other psychoactive substance dependence, uncomplicated; K42.0 Umbilical hernia with obstruction, without gangrene; K57.20 Diverticulitis of large intestine with perforation and abscess without bleeding; Z68.41 Body mass index [BMI] 40.0-44.9, adult; F17.200 Nicotine dependence, unspecified, uncomplicated; F12.10 Cannabis abuse, uncomplicated; F14.10 Cocaine abuse, uncomplicated; E86.1 Hypovolemia; I10 Essential (primary) hypertension; Z20.822 Contact with and (suspected) exposure to COVID-19; E66.9 Obesity, unspecified; Z71.41 Alcohol abuse counseling and surveillance of alcoholic
CPT/HCPCS: 36415; 74018; 74176; 74177; 74178; 80048; 80053; 80061; 80305; 81001; 82150; 82550; 83605; 83690; 83735; 84100; 84132; 84145; 84484; 85025; 85027; 85610; 85730; 87040; 87088; 87635; 93005; 97039; A4344; A4606; C1894; C9113; C9803; G0378; J0330; J0360; J1650; J1885; J2001; J2060; J2175; J2250; J2270; J2370; J2405; J2543; J2704; J2710; J2765; J3010; J3411; J3475; J3480; J3490; J7030; J7070; J7120; Q9963; Q9967